=== PATIENT | female | born 1970 ===

== ENCOUNTER 2024-03-10 21:09 | Emergency (ER) | payer OTHER ==
[~2024-03-10] VITALS: Ht 160 cm; Wt 90.7 kg
[2024-03-10] MEDS ORDERED: Ketorolac Tromethamine 30mg Vial IM ONE (21:30)
== END 2024-03-10 21:48 | disposition home or self-care (01) ==
LOC: ER 21:09
DX: H92.02 Otalgia, left ear (principal); Z88.8 Allergy status to other drugs, medicaments and biological substances
CPT/HCPCS: J1885